=== PATIENT | female | born 1980 | race Two or more races ===

== ENCOUNTER 2020-11-23 14:59 | Emergency (ER) | payer OTHER ==
[~2020-11-23] VITALS: Ht 165.1 cm; Wt 75.7 kg
[2020-11-23 15:35] LABS: Urine Bacteria FEW /hpf (None Seen); Urine Blood 2+ /uL (Negative); Urine Specific Gravity 1.015 (1.001-1.035); Urine WBC 110 /hpf (0 - 5)
[2020-11-23] MEDS ORDERED: cefTRIAXone SOD 1,000 MG VL IM ONE (16:15)
[2020-11-23] MEDS ORDERED: LIDOCAINE 1% HCL (LOCAL ANESTH.) INJ 20ML MDV ONE (16:24)
[2020-11-23 17:02] VITALS: BP 138/96
== END 2020-11-23 17:32 | disposition home or self-care (01) ==
LOC: ER 14:59
DX: N39.0 Urinary tract infection, site not specified (principal); Z20.2 Contact with and (suspected) exposure to infections with a predominantly sexual mode of transmission; F17.210 Nicotine dependence, cigarettes, uncomplicated
CPT/HCPCS: 81001; 96372; 99284; J0696; J2001